=== PATIENT | male | born 1995 | race Caucasian/White ===

== ENCOUNTER 2017-03-21 18:23 | Emergency (ER) | payer BC, OTHER ==
--- NOTE | 2017-03-21 19:16 | ERPHSYRPT ---
- History of Present Illness Time Seen by Provider: 03/21/17 19:11 Source: patient Exam Limitations: no limitations Patient Subjective Stated Complaint: slippen and fell stricking his face on side walk no loc -co nose bleed no vomiting Triage Nursing Assessment: awake and alert no bleedingat present Physician History: The patient is a 21-year-old male with his father complaining that he slipped on loose gravel out in front of work while on break and then falling and striking his left side of his face on the concrete sidewalk. He complains of pain in and around his left eye, his nose, and headache. He had a nosebleed that was primarily bleeding from his left nostril but was some blood coming out of his right. He did not lose consciousness. He is not nauseated. His past medical history is unremarkable. Occurred: hours ago (1) Reason for Fall: slipped, fell from standing pos Injuries/Pain Location: face Loss of Consciousness: no loss of consciousness Quality: sharpness Severity of Pain-Max: moderate Severity of Pain-Current: moderate Modifying Factors: Improves With: nothing Associated Symptoms (Fall): headache, No nausea, No neck pain, No seizures, No slurred speech, No vomiting Allergies/Adverse Reactions: cefdinir [From Omnicef] Allergy (Verified 03/21/17 18:56) Home Medications: No Reportable Medications [No Reported Medications] 03/21/17 [History] Immunizations Up to Date: Yes - Review of Systems Constitutional: No Fever, No Chills Eyes: Eye Pain, Foreign Body Sensation Ears, Nose, & Throat: Nose Pain, Epistaxis Respiratory: No Cough, No Dyspnea Cardiac: No Chest Pain, No Edema, No Syncope Abdominal/Gastrointestinal: No Abdominal Pain, No Nausea, No Vomiting, No Diarrhea Genitourinary Symptoms: No Dysuria Musculoskeletal: Fall, Injury Skin: No Rash Neurological: Headache Psychological: No Symptoms Endocrine: No Symptoms Hematologic/Lymphatic: No Symptoms Immunological/Allergic: No Symptoms All Other Systems: Reviewed and Negative - Past Medical History Pertinent Past Medical History: No - Past Surgical History Past Surgical History: Yes Gastrointestinal: Hernia Repair - Social History Smoking Status: Former smoker Exposure to second hand smoke: Yes Drug Use: none Patient Lives Alone: Yes - Nursing Vital Signs Nursing Vital Signs: Initial Vital Signs Temperature 98.4 F Temperature Source Oral Pulse Rate 84 Respiratory Rate 16 Blood Pressure [Right Arm] 129/72 Pain Intensity 4 - Halls Coma Score Best Eye Response (Fabio): (4) open spontaneously Best Verbal Response (Fabio): (5) oriented Best Motor Response (Fabio): (6) obeys commands Halls Total: 15 - Physical Exam General Appearance: mild distress Head Injury: tenderness (left periorbital) Eye Exam: PERRL/EOMI ENT Exam: other (dried nasal blood), No dental injury Neck Exam: normal inspection, No tenderness Respiratory/Chest Exam: normal breath sounds, No chest tenderness, No respiratory distress Cardiovascular Exam: normal heart sounds, regular rate/rhythm Gastrointestinal Exam: soft, No tenderness, No distention, No guarding, No ecchymosis Rectal Exam: not done Back Exam: normal inspection, No vertebral tenderness Extremity Exam: normal inspection, normal range of motion, pelvis stable, No deformities Neurologic Exam: alert, oriented x 3, cooperative, sensation nml, No motor deficits Skin Exam: normal color, warm, dry SpO2 Interpretation: normal SpO2: 96 Oxygen Delivery: Room Air - CT Exams Head CT Interpretation: Negative, Tele-radiologist Report, No Fracture (per DR Arita) Cervical Spine CT Interpretation: Negative, Tele-radiologist Report, No Fracture (per DR Arita) Maxillofacial Bones CT Interpretation: Negative, Tele-radiologist Report, No Fracture (Per DR Arita) Ordered Tests: Active Orders 24 hr Category Date Time Status Angel Lens Irrigation STAT Care 03/21/17 20:12 Active CERVICAL SPINE WO CONTRAST [CT] Stat Exams 03/21/17 19:21 Taken FACIAL BONES WO CONTRAST [CT] Stat Exams 03/21/17 19:22 Taken HEAD WITHOUT CONTRAST [CT] Stat Exams 03/21/17 19:21 Taken Medication Summary Discontinued Medications Generic Name Dose Route Start Last Admin Trade Name Freq PRN Reason Stop Dose Admin Ketorolac Tromethamine 60 mg 03/21/17 19:21 03/21/17 19:34 Toradol 30 Mg Injection IM 03/21/17 19:22 Not Given STAT ONE Ketorolac Tromethamine Confirm 03/21/17 19:30 Toradol 30 Mg Injection Administered 03/21/17 19:31 Dose 60 mg .ROUTE .STK-MED ONE Tetracaine HCl 4 ml 03/21/17 20:12 03/21/17 20:16 Tetracaine 0.5% Steri-Unit Celia OP 03/21/17 20:13 4 ml STAT STA Administration Tetracaine HCl Confirm 03/21/17 20:15 Tetracaine 0.5% Steri-Unit Celia Administered 03/21/17 20:16 Dose 4 ml OP .STK-MED ONE - Progress Progress: improved Progress Note: 03/21/17 20:56 The patient was offered tetracaine in the left eye and Angel lens irrigation. The patient refused stating that he was able to get a piece of sand out of his left eye and he feels better now. Counseled pt/family regarding: diagnosis, need for follow-up, rad results - Departure Time of Disposition: 20:57 Departure Disposition: Home Clinical Impression: Foreign body of left eye, Facial contusion, Epistaxis Condition: Stable Critical Care Time: No Additional Instructions: You fell onto the sidewalk in front of work causing a contusion and nosebleed to your face. The CT scan of your face, head, and C-spine were negative for any fractures. Your left eye was anesthetized with tetracaine so we could irrigate her left eye, but you refuse because you were able to remove some sand from the left eye causing her to feel better. Take Tylenol and ibuprofen as needed. Follow-up as needed.
[2017-03-21] MEDS ORDERED: TORAdol 30 mg Injection IM ONE (19:21)
[2017-03-21] MEDS ORDERED: TORAdol 30 mg Injection ONE (19:30)
[2017-03-21] MEDS ORDERED: TETRACAINE 0.5% STERI-UNIT SOL OP STA (20:12)
[2017-03-21] MEDS ORDERED: TETRACAINE 0.5% STERI-UNIT SOL OP ONE (20:15)
[2017-03-21 21:23] VITALS: BP 124/68; PULSE 80; O2SAT 97
--- NOTE | 2017-03-22 08:56 | XRAY ---
Indication: Left facial injury/pain following fall. Multiple contiguous axial images obtained through the head without contrast. Comparison: None Normal appearing brain parenchyma, ventricles, and bony calvarium. Partially visualized left maxillary sinus polyp/retention cyst. Remaining visualized paranasal sinuses and mastoid air cells clear. Impression: Normal CT head without contrast exam. Comment: Preliminary interpretation was made by [facility]. No discrepancy. CT DI 51.26
--- NOTE | 2017-03-22 09:00 | XRAY ---
Indication: Left facial injury/pain following fall. Multiple contiguous axial images obtained through the facial bones. Sagittal and coronal reformatted images obtained. Comparison: None No acute fracture, suspicious bony lesions, or radiopaque foreign body. Orbits including roof, souza, and floors intact. Visualized noncontrasted soft tissues unremarkable. There is moderate nasal septal deviation to the left. Small left maxillary sinus polyp/retention cyst. Remaining visualized paranasal sinuses are clear. CT head and CT cervical spine reported separately. Impression: CT facial bones negative for acute fracture. Incidental left maxillary sinus polyp/retention cyst and nasal septal deviation. Comment: Preliminary interpretation was made by [facility]. No discrepancy. CT DI 59.47
--- NOTE | 2017-03-22 13:52 | XRAY ---
Indication: Left facial injury/pain following fall. Multiple contiguous axial images obtained through the cervical spine. Sagittal and coronal reformatted images obtained. Comparison: None Axial images negative for acute fracture, suspicious bony lesions, or spinal canal stenosis. Sagittal and coronal reformatted images demonstrates lordotic straightening, positional versus paraspinal muscular spasm. Disc spaces maintained. No acute compression fracture, subluxation, or jumped facet. Normal appearing craniocervical junction. Visualized noncontrasted soft tissues including lung apices unremarkable. CT head and CT facial bones reported separately. Impression: 1. Negative for acute fracture/subluxation. 2. Lordotic straightening, positional versus paraspinal spasm. Comment: Preliminary interpretation was made by [facility]. No discrepancy. CT DI 97.44
== END 2017-03-21 21:23 | disposition home or self-care (01) ==
LOC: ED 18:23
DX: T15.92XA Foreign body on external eye, part unspecified, left eye, initial encounter (principal); S00.83XA Contusion of other part of head, initial encounter; R04.0 Epistaxis; W01.198A Fall on same level from slipping, tripping and stumbling with subsequent striking against other object, initial encounter; Y93.01 Activity, walking, marching and hiking; Y92.480 Sidewalk as the place of occurrence of the external cause
CPT/HCPCS: 66999; 70450; 70486; 72125; 80307; 99284; J1885